=== PATIENT | male | born 1970 | race Caucasian/White ===

== ENCOUNTER 2018-11-21 14:23 | Emergency (ER) | payer MEDICAID, OTHER ==
[~2018-11-21] VITALS: Ht 165.1 cm; Wt 80.0 kg
[2018-11-21 14:24] VITALS: BP 136/66; PULSE 81; RESP 17; Ht 165.1 cm; Wt 80.0 kg
[2018-11-21] MEDS ORDERED: ONDANSETRON (ODT) 4 MG TAB ODT STA (15:06)
[2018-11-21] MEDS ORDERED: HYDROCODONE/APAP (5/325) TAB PO ONE (15:30)
[2018-11-21] MEDS ORDERED: HYDR-4011 PO (15:51)
[2018-11-21] MEDS ORDERED: COLC0.6T6 PO (15:51)
[2018-11-21] MEDS ORDERED: NAPR-985 PO (15:51)
--- NOTE | 2018-12-03 16:01 | ERD ---
ER Documentation Chief Complaint Chief Complaint LT KNEE PAIN - HX OF GOUT HPI 48-year-old male presenting with knee pain. Patient has a history of gout. Patient denies any recent traumatic injuries. Denies fevers. Has not taken medications for pain. Denies other medical problems. NKDA. Surgical history denies. Social history denies ROS All systems reviewed and are negative except as per history of present illness. Medications Home Meds Active Scripts Colchicine* (Colcrys*) 0.6 Mg Tablet, 0.6 MG PO ONCE, #3 TAB Prov:HARPREET MORRISON PA-C 11/21/18 Naproxen* (Naprosyn*) 500 Mg Tablet, 500 MG PO BID PRN for PAIN AND/OR INFLAMMATION, #30 TAB Prov:HARPREET MORRISON PA-C 11/21/18 Hydrocodone/Acetaminophen ([place] 5-325 Tablet) 1 Each Tablet, 1 TAB PO Q6H PRN for PAIN, #7 TAB Prov:HARPREET MORRISON PA-C 11/21/18 Allergies Allergies: Coded Allergies: No Known Allergy (Unverified , 11/21/18) PMhx/Soc Medical and Surgical Hx: pt denies Medical Hx History of Surgery: Yes (left upper arm SX) Anesthesia Reaction: No Hx Alcohol Use: No Hx Substance Use: No Hx Tobacco Use: No Smoking Status: Never smoker FmHx Family History: No diabetes, No coronary disease, No other Physical Exam Physical Exam GENERAL: The patient is well-appearing, well-nourished, in no acute distress CHEST: Clear to auscultation bilaterally. There are no rales, wheezes or rhonchi. HEART: Regular rate and rhythm. No murmurs, clicks, rubs or gallops. EXTREMITIES: Equal pulses bilaterally. There is no peripheral clubbing, cyanosis or edema. No focal swelling or erythema. Full range of motion. Grossly neurovascularly intact. NEUROLOGIC: Alert and oriented. Cranial nerves II through XII intact. Motor strength in all 4 extremities with 5 out of 5 strength. Sensation grossly intact. SKIN: Erythema noted to the knee with warmth. Tender tenderness with movement. Results 24 hrs Current Medications Medications Dose Sig/Althea Start Time Status Last (Trade) Ordered Route PRN Stop Time Admin Dose Reason Admin 1 tab ONCE ONCE 11/21/18 DC 11/21/18 Acetaminophen PO 15:30 15:50 / 11/21/18 15:31 Hydrocodone Bitart ([place] (5/325)) Ondansetron 4 mg ONCE STAT 11/21/18 DC 11/21/18 HCl (Zofran ODT 15:06 15:50 Odt) 11/21/18 15:08 Procedures/MDM DIAGNOSTIC IMAGING REPORT Patient: [place] : 1970 Age: 48 Sex: M MR #: [id number] DOS: 11/21/18 1506 Ordering MD: ONDINA MORRISON PA-C Location: [facility] Room/Bed: PROCEDURE: XR Knee. CLINICAL INDICATION: knee pain TECHNIQUE: AP, lateral and oblique view of the left knee were obtained. The images reviewed on a PACS workstation. COMPARISON: None. FINDINGS: Question nondisplaced lateral tibial plateau fracture, however evaluation is limited by osteopenia. Mild tricompartmental osteoarthritis. Large joint effusion without definite lipohemarthrosis detected. Prominent soft tissue swelling. IMPRESSION: Question nondisplaced lateral tibial plateau fracture, however osteopenia limits evaluation. Consider CT for further evaluation. Large joint effusion. ER course: The immobilizer and crutches given the ED. MDM: 48-year-old male presenting with knee. Patient is recommended to follow-up with orthopedist. There is a questionable fracture noted on x-ray and I will immobilize the joint. I have low suspicion for septic joint. Patient is discharged with strict ER precautions. I will treat for possible gout given patient has a long history of gout and similar symptoms are presenting today. Patient is discharged with strict ER precautions. All questions answered at discharge Departure Diagnosis: Primary Impression: Knee injury Condition: Stable Patient Instructions: Knee Pain, Uncertain Cause Referrals: COMMUNITY CLINICS YOU HAVE RECEIVED A MEDICAL SCREENING EXAM AND THE RESULTS INDICATE THAT YOU DO NOT HAVE A CONDITION THAT REQUIRES URGENT TREATMENT IN THE EMERGENCY DEPARTMENT. FURTHER EVALUATION AND TREATMENT OF YOUR CONDITION CAN WAIT UNTIL YOU ARE SEEN IN YOUR DOCTORS OFFICE WITHIN THE NEXT 1-2 DAYS. IT IS YOUR RESPONSIBILITY TO MAKE AN APPOINTMENT FOR FOLOW-UP CARE. IF YOU HAVE A PRIMARY DOCTOR --you should call your primary doctor and schedule an appointment IF YOU DO NOT HAVE A PRIMARY DOCTOR YOU CAN CALL OUR PHYSICIAN REFERRAL HOTLINE AT IF YOU CAN NOT AFFORD TO SEE A PHYSICIAN YOU CAN CHOSE FROM THE FOLLOWING [facility] [address] [facility] [address] [facility] [address] [facility] [address] [facility] [phone] [id number] [facility]. [facility]. [address] Additional Instructions: FOLLOW UP WITH YOUR PRIMARY CARE PHYSICIAN TOMORROW.Return to this facility if you are not improving as expected. HARPREET MORRISON PA-C Dec 03, 2018 16:01
== END 2018-11-21 16:54 | disposition home or self-care (01) ==
LOC: FTE 14:23
DX: S89.92XA Unspecified injury of left lower leg, initial encounter (principal); X58.XXXA Exposure to other specified factors, initial encounter; Y92.9 Unspecified place or not applicable
CPT/HCPCS: 29505; 73562; Z7502; Z7610

== ENCOUNTER 2019-02-06 09:56 | Emergency (ER) | payer SELFPAY ==
[~2019-02-06] VITALS: Ht 162.6 cm; Wt 89.0 kg
[~2019-02-06 09:56] MED LIST: COLC0.6T6 PO; HYDR-4011 PO; NAPR-985 PO
[2019-02-06 10:02] VITALS: Ht 162.6 cm; Wt 89.0 kg
[2019-02-06] MEDS ORDERED: NAPR-985 PO (10:41)
[2019-02-06] MEDS ORDERED: DEXAMETHASONE 10 MG/ML 1 ML INJ IM ONE (11:00)
[2019-02-06] MEDS ORDERED: NAPROXEN 500 MG TAB PO ONE (11:00)
[2019-02-06 11:06] VITALS: BP 110/55; PULSE 59; RESP 19
--- NOTE | 2019-02-06 15:01 | ERD ---
ER Documentation Chief Complaint Chief Complaint HERE 5 DAYS AGO, TODAY HAS KNEE PAIN, ALSO WANTS GOUT MED REFLL HPI This is a 48-year-old Guyanese-speaking male with known history of gout who presents with an acute gout flare for the past 3 days. Patient is complaining of left knee pain and swelling. He is unable to bend the knee due to pain. He has been wearing an immobilizer for comfort. He states he ran out of his gout medications and requesting a refill. His last gout flare was approximately 2 months ago. Denies any trauma. Denies recent surgeries, fatty foods or alcohol ingestion. ROS All systems reviewed and are negative except as per history of present illness. Medications Home Meds Active Scripts Naproxen* (Naprosyn*) 500 Mg Tablet, 500 MG PO BID PRN for PAIN AND/OR INFLAMMATION, #30 TAB Prov:REYES VELASQUEZ PA-C 02/06/19 Colchicine* (Colcrys*) 0.6 Mg Tablet, 0.6 MG PO ONCE, #3 TAB Prov:HARPREET MORRISON PA-C 11/21/18 Naproxen* (Naprosyn*) 500 Mg Tablet, 500 MG PO BID PRN for PAIN AND/OR INFLAMMATION, #30 TAB Prov:HARPREET MORRISON PA-C 11/21/18 Hydrocodone/Acetaminophen ([place] 5-325 Tablet) 1 Each Tablet, 1 TAB PO Q6H PRN for PAIN, #7 TAB Prov:HARPREET MORRISON PA-C 11/21/18 Allergies Allergies: Coded Allergies: No Known Allergy (Unverified , 11/21/18) PMhx/Soc History of Surgery: Yes (left upper arm SX) Anesthesia Reaction: No Hx Alcohol Use: No Hx Substance Use: No Hx Tobacco Use: No Physical Exam Vitals Vital Signs Date Temp Pulse Resp B/P (MAP) Pulse Ox O2 O2 Flow FiO2 Time Delivery Rate 02/06/19 59 19 110/55 98 Room Air 11:06 (73) 02/06/19 98.1 65 18 129/77 99 10:02 (94) Physical Exam Const: No acute distress Head: Atraumatic Eyes: Normal Conjunctiva ENT: Normal External Ears, Nose and Mouth. Ext: + Left knee w/ swelling, erythema and warmth compared to the right knee. Tenderness of the medial knee. Unable to flex knee due to pain. Distal pulses intact. Sensation grossly intact. Negative Homans sign. Right lower extremity normal. Neur: Awake and alert Psych: Normal Mood and Affect Results 24 hrs Current Medications Medications Dose Sig/Althea Start Time Status Last (Trade) Ordered Route PRN Stop Time Admin Dose Reason Admin 10 mg ONCE ONCE 02/06/19 DC 02/06/19 Dexamethasone IM 11:00 02/06/19 10:46 (Decadron) 11:01 Naproxen 500 mg ONCE ONCE 02/06/19 DC 02/06/19 (Naprosyn) PO 11:00 02/06/19 11:03 11:01 Procedures/MDM LABS & DIAGNOSTIC IMAGING: [ ED COURSE: The patient was given IM Decadron, naproxen The medication was well tolerated and the patient had market improvement in symptoms. The patient remained stable throughout ED course. MEDICAL DECISION MAKIN-year-old male with history of gout presents with an acute gout flare. Physical exam is consistent with gout. He has no fever here and nontoxic appearing. Vital signs are reassuring. He is neurovascular intact on physical exam. I have low suspicion for septic arthritis, osteomyelitis or other deep space infection. He was given Decadron here. He was given a refill of his naproxen and given referrals to an orthopedic center. Symptoms have been ongoing for over 72 hours, therefore colchicine is not indicated at this time. Patient's extremity symptoms have stabilized while he was evaluated in the department and is appropriate for outpatient follow up. No evidence of compartment syndrome, neurologic injury, vascular injury, open joint, or foreign body. PRESCRIPTIONS: Naproxen SPECIALIST FOLLOW UP RECOMMENDED: Orthopedist Patient has been advised to follow up with primary care in 1-2 days. Departure Diagnosis: Primary Impression: Gout Gout site: knee Gout etiology: unspecified cause Chronicity: acute Laterality: left Qualified Codes: M10.9 - Gout, unspecified Condition: Stable Patient Instructions: Gouty Arthritis, Gout Diet [facility] 7 a.m.- 11 p.m. Every Day of the Week NO APPOINTMENT OR AUTHORIZATION NEEDED Additional Instructions: Follow-up with orthopedic center for aspiration or further treatment of your gout. Paciente aconseja volver a Departamento de urgencias inmediatamente para sntomas nuevos o que empeoran . Paciente aconseja posteriores con el PCP en 1-2 rascon. Si el paciente no tiene ninguna de atencin primaria pueden seguir con [facility] [address] [place] [address] o [facility] + [address] [phone] REYES VELASQUEZ PA-C Feb 06, 2019 15:01
== END 2019-02-06 11:50 | disposition home or self-care (01) ==
LOC: FTE 09:56
DX: M10.9 Gout, unspecified (principal)
CPT/HCPCS: 99283; J1100